=== PATIENT | female | born 1995 | race Caucasian/White ===

== ENCOUNTER 2017-01-24 10:58 | Emergency (ER) | payer OTHER ==
--- NOTE | 2017-01-24 11:37 | EDM.PDOC ---
ED HPI EYE COMPLAINT - General Chief Complaint: Eye Problems Stated Complaint: pink eye Time Seen by Provider: 01/24/17 11:20 Source: Reports: Patient History Limitations: Reports: No limitations - History of Present Illness INITIAL COMMENTS - FREE TEXT/NARRATIVE: HISTORY AND PHYSICAL: History of present illness: [Comes to the emergency room complaining of right eye redness and drainage. Symptoms developed last evening and worsened overnight. Her eye was matted shut this morning with green crust. She's not had any fever or chills, runny nose, earaches, sore throat, or cough. She has been around people with pinkeye both at work and socially. She denies any medication allergies. No blurred vision or double vision. Does not wear contacts or glasses.] Review of systems: As per history of present illness and below otherwise all systems reviewed and negative. Past medical history: As per history of present illness and as reviewed below otherwise noncontributory. Surgical history: As per history of present illness and as reviewed below otherwise noncontributory. Social history: No reported history of drug or alcohol abuse. Family history: As per history of present illness and as reviewed below otherwise noncontributory. Physical exam: HEENT: Atraumatic, normocephalic. TMs are pearly mendez bilaterally no erythema or effusion. Nares are clear. Oral mucous membranes are pink and moist no tonsillar swelling erythema or exudate. Visual acuity 20/20 bilaterally. PERRLA. Right conjunctiva is erythematous and injected. Thick white discharge present to right eye. neck supple, lymphadenopathy. Lungs: Clear to auscultation, breath sounds equal bilaterally, chest nontender. Heart: S1S2, regular, negative for clicks, rubs, or JVD. Genitourinary: Deferred. Rectal: Deferred. Extremities: Atraumatic, ROM x 4. Neurovascular unremarkable. Neuro: Awake, alert, oriented. Motor and sensory unremarkable throughout. Exam nonfocal. Impression: [bacterial conjunctivitis] Plan: [Polymyxin B./trimethoprim 10,000 units per milligram #1 bottle sig: One drop in the affected eye 4 times daily. Discussed ways to decrease transmission to others. All questions are answered and concerns are addressed.] Definitive disposition and diagnosis as appropriate pending reevaluation and review of above. - Related Data Allergies/ADRs: Allergies No Known Allergies Allergy (Verified 01/24/17 11:11) Home Meds: Ambulatory Orders Medication Instructions Recorded Confirmed . 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 Other Musculoskeletal History: back injury Neurological History: Reports: None Psychiatric History: Reports: None Endocrine/Metabolic History: Reports: None Hematologic History: Reports: None Immunologic History: Reports: None Oncologic (Cancer) History: Reports: None Dermatologic History: Reports: None - Infectious Disease History Infectious Disease History: Reports: None - Past Surgical History Head Surgeries/Procedures: Reports: None Musculoskeletal Surgical History: Reports: Other (see below) Other Musculoskeletal Surgeries/Procedures:: spinal fusion Social & Family History - Family History Family Medical History: Noncontributory - Tobacco Use Smoking Status *Q: Never Smoker Second Hand Smoke Exposure: No - Caffeine Use Caffeine Use: Reports: Coffee Caffeine Use Comment: 2-3/day - Recreational Drug Use Recreational Drug Use: No ED ROS GENERAL - Review of Systems Review Of Systems: ROS reveals no pertinent complaints other than HPI. ED EXAM GENERAL W FULL EYE - Physical Exam Exam: See Below Course - Vital Signs Last Recorded V/S: Last Vital Signs Temp 97.7 F 01/24/17 11:45 Pulse 82 01/24/17 11:45 Resp 16 01/24/17 11:45 BP 122/69 01/24/17 11:45 Pulse Ox 99 01/24/17 11:45 Departure - Departure Time of Disposition: 11:35 Disposition: Home, Self-Care 01 Condition: good Clinical Impression: Conjunctivitis Qualifiers: Conjunctivitis type: other mucopurulent Laterality: right Qualified Code(s): H10.021 - Other mucopurulent conjunctivitis, right eye Instructions: Bacterial Conjunctivitis, Tefn-er-Newk Referrals: PCP,None [Primary Care Provider] - Forms: ED Department Discharge Additional Instructions: The following information is given to patients seen in the emergency department who are being discharged to home. This information is to outline your options for follow-up care. We provide all patients seen in our emergency department with a follow-up referral. The need for follow-up, as well as the timing and circumstances, are variable depending upon the specifics of your emergency department visit. If you don't have a primary care physician on staff, we will provide you with a referral. We always advise you to contact your personal physician following an emergency department visit to inform them of the circumstance of the visit and for follow-up with them and/or the need for any referrals to a consulting specialist. The emergency department will also refer you to a specialist when appropriate. This referral assures that you have the opportunity for follow-up care with a specialist. All of these measure are taken in an effort to provide you with optimal care, which includes your follow-up. Under all circumstances we always encourage you to contact your private physician who remains a resource for coordinating your care. When calling for follow-up care, please make the office aware that this follow-up is from your recent emergency room visit. If for any reason you are refused follow-up, please contact the [facility] emergency department at and asked to speak to the emergency department charge nurse. [facility] [address] [place] [id number] Followup with her local primary care provider in 48-72 hours. Use eyedrops as directed. Perform good handwashing to avoid spreading to others. Use separate washcloths for each eye to avoid cross contamination. Return to ER as needed as discussed.
== END 2017-01-24 11:45 | disposition home or self-care (01) ==
LOC: MW.ED 10:58
DX: H10.021 Other mucopurulent conjunctivitis, right eye (principal)
CPT/HCPCS: 99283

== ENCOUNTER 2019-01-06 01:51 | Inpatient (IN) | payer BC ==
[2019-01-06] MEDS ORDERED: Carboprost Tromethamine 250 MCG/1 ML Amp IM PRN (02:01)
[2019-01-06] MEDS ORDERED: Lidocaine 1% 50 ML MDV INJECT PRN (02:01)
[2019-01-06] MEDS ORDERED: Tranexamic Acid 1,000 MG in Sodium Chloride 0.9% 100 ML IV PRN (02:01)
[2019-01-06] MEDS ORDERED: Sodium Chloride 0.9% 2.5 ML Syringe FLUSH PRN (02:01)
[2019-01-06] MEDS ORDERED: Water For Irrigation,Sterile 1,000 ML Container IRR PRN (02:01)
[2019-01-06] MEDS ORDERED: Methylergonovine 0.2 MG/1 ML Amp IM PRN (02:01)
[2019-01-06] MEDS ORDERED: Nalbuphine 10 MG/1 ML Vial IVPUSH PRN ×2 (02:01→22:58)
[2019-01-06] MEDS ORDERED: Butorphanol 1 MG/ML SDV IVPUSH PRN (02:01)
[2019-01-06] MEDS ORDERED: Terbutaline 1 MG/ML SDV SUBCUT PRN (02:01)
[2019-01-06] MEDS ORDERED: Misoprostol 200 MCG Tab PO PRN (02:01)
[2019-01-06] MEDS ORDERED: Sodium Chloride 0.9% 10 ML Syringe FLUSH PRN (02:01)
[2019-01-06] MEDS ORDERED: Oxytocin/0.9 % Sodium Chloride 30 UNIT/500 ML BAG IV SCH ×3 (02:15→22:15)
[2019-01-06] MEDS: Lactated Ringers 1,000 ML IV SCH ×3 (02:25→20:33)
[2019-01-06] MEDS ORDERED: Misoprostol 25 MCG (1/4 of 100 MCG) Tab PO ONE ×2 (03:00→12:46)
[2019-01-06] MEDS ORDERED: Misoprostol 25 MCG (1/4 of 100 MCG) Tab VAG PRN (03:00)
[2019-01-06] MEDS: Misoprostol 25 MCG (1/4 of 100 MCG) Tab VAG PRN ×2 (08:10→12:35)
[2019-01-06] MEDS ORDERED: Lidocaine HCl/EPINEPHrine 5 ML IJ ONE (17:16)
[2019-01-06] MEDS ORDERED: fentaNYL 100 MCG/2 ML SDV ONE ×3 (17:17→23:15)
[2019-01-06] MEDS ORDERED: Ropivacaine 0.2% 2 MG/ML 20 ML SDV ONE (17:52)
--- NOTE | 2019-01-06 18:12 | PCM.PREANE ---
Preanesthetic Assessment - Anesthesia/Transfusion/Family Hx Anesthesia History: Prior Anesthesia Without Reaction Family History of Anesthesia Reaction: No Transfusion History: No Prior Transfusion(s) - Review of Systems General: No Symptoms Pulmonary: No Symptoms Cardiovascular: No Symptoms Gastrointestinal: No Symptoms Neurological: No Symptoms Other: Reports: None (Denies any personal or family hx of bleeding or clotting problems) - Physical Assessment Height: 1.65 m Weight: 79.379 kg ASA Class: 2 Mental Status: Alert & Oriented x3 Dentition: Reports: Normal Dentition - Lab Values: Laboratory Last Values WBC 10.12 K/uL (4.0-11.0) 01/06/19 02:15 RBC 4.31 M/uL (4.30-5.90) 01/06/19 02:15 Hgb 12.6 g/dL (12.0-16.0) 01/06/19 02:15 Hct 37.4 % (36.0-46.0) 01/06/19 02:15 MCV 86.8 fL (80.0-98.0) 01/06/19 02:15 MCH 29.2 pg (27.0-32.0) 01/06/19 02:15 MCHC 33.7 g/dL (31.0-37.0) 01/06/19 02:15 RDW Std Deviation 43.2 fl (28.0-62.0) 01/06/19 02:15 RDW Coeff of Valdo 14 % (11.0-15.0) 01/06/19 02:15 Plt Count 167 K/uL (150-400) 01/06/19 02:15 MPV 10.90 fL (7.40-12.00) 01/06/19 02:15 Nucleated RBC % 0.0 /100WBC 01/06/19 02:15 Nucleated RBCs # 0 K/uL 01/06/19 02:15 Blood Type O POSITIVE 01/06/19 02:15 Antibody Screen NEGATIVE 01/06/19 02:15 - Allergies Allergies/Adverse Reactions: Allergies Allergy/AdvReac Type Severity Reaction Status Date / Time No Known Allergies Allergy Verified 01/06/19 02:00 - Acknowledgements Anesthesia Type Planned: Epidural Pt an Appropriate Candidate for the Planned Anesthesia: Yes Alternatives and Risks of Anesthesia Discussed w Pt/Guardian: Yes Pt/Guardian Understands and Agrees with Anesthesia Plan: Yes Additional Comments: Patient had scoliosis surgery at age 15. Scar visible thoracic level. Patient states that her x-rays were sent over and she "was approved for an epidural" but unsure of who looked at them. She also states that she still has scoliosis on her lower spine also. 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 Musculoskeletal History: back injury Neurological History: Reports: None Psychiatric History: Reports: None Endocrine/Metabolic History: Reports: None Hematologic History: Reports: None Immunologic History: Reports: None Oncologic (Cancer) History: Reports: None Dermatologic History: Reports: None - Infectious Disease History Infectious Disease History: Reports: Chicken Pox - Past Surgical History Head Surgeries/Procedures: Reports: None Neurological Surgical History: Reports: Spinal Fusion Other Neurological Surgeries/Procedures: 2010 Musculoskeletal Surgical History: Reports: Other (See Below) Other Musculoskeletal Surgeries/Procedures:: spinal fusion 2010 - SUBSTANCE USE Smoking Status *Q: Never Smoker Second Hand Smoke Exposure: No - HOME MEDS Home Medications: Home Meds PNV95/Ferrous Fumarate/FA [ Vitamin Tablet] 1 tab PO DAILY 01/06/19 [ History] - CURRENT (IN HOUSE) MEDS Current Meds: Current Medications Butorphanol Tartrate (Stadol) 1 mg IVPUSH Q1H PRN PRN Reason: Pain Carboprost Tromethamine (Hemabate Ds) 250 mcg IM ASDIRECTED PRN PRN Reason: Post Hemorrhage Lactated Ringer's (Ringers, Lactated) 1,000 mls @ 150 mls/hr IV ASDIRECTED JEANNIE Last Admin: 01/06/19 17:09 Dose: 999 mls/hr Oxytocin/Sodium Chloride (Oxytocin 30 Unit/500 Ml-Ns) 30 unit in 500 mls @ 999 mls/hr IV TITRATE JEANNIE Oxytocin/Sodium Chloride (Oxytocin 30 Unit/500 Ml-Ns) 30 unit in 500 mls @ 2 mls/hr IV TITRATE JEANNIE; Protocol Tranexamic Acid 1,000 mg/ (Sodium Chloride) 110 mls @ 660 mls/hr IV ONETIME PRN PRN Reason: Bleeding Lidocaine HCl (Xylocaine 1%) 50 ml INJECT ONETIME PRN PRN Reason: Laceration repair Methylergonovine Maleate (Methergine) 0.2 mg IM ASDIRECTED PRN PRN Reason: Post Hemorrhage Misoprostol (Cytotec) 200 mcg PO ONETIME PRN PRN Reason: Post Hemorrhage Misoprostol (Cytotec) 25 mcg VAG ONETIME PRN PRN Reason: Cervical Ripening Last Admin: 01/06/19 02:52 Dose: 25 mcg Misoprostol (Cytotec) 25 mcg VAG Q4H PRN PRN Reason: Cervical Ripening Last Admin: 01/06/19 12:35 Dose: 25 mcg Nalbuphine HCl (Nubain) 10 mg IVPUSH Q1H PRN PRN Reason: Pain (severe 7-10) Last Admin: 01/06/19 16:58 Dose: 10 mg Sodium Chloride (Saline Flush) 10 ml FLUSH ASDIRECTED PRN PRN Reason: Keep Vein Open Sodium Chloride (Saline Flush) 2.5 ml FLUSH ASDIRECTED PRN PRN Reason: Keep Vein Open Sterile Water (Sterile Water For Irrigation) 1,000 ml IRR ASDIRECTED PRN PRN Reason: delivery Terbutaline Sulfate (Brethine) 0.25 mg SUBCUT ASDIRECTED PRN PRN Reason: Tacysystole Discontinued Medications Fentanyl (Sublimaze) Confirm Administered Dose 100 mcg .ROUTE .STK-MED ONE Stop: 01/06/19 17:18 Fentanyl/Bupivacaine HCl (Gnavilzs-Ymlzt-Pw 2 Mcg/Ml-0.125%) Confirm Administered Dose 100 mls @ as directed .ROUTE .STK-MED ONE Stop: 01/06/19 17:17 Lidocaine/Epinephrine (Lidocaine 1.5%-Epi 1:200,000) Confirm Administered Dose 5 ml IJ .STK-MED ONE Stop: 01/06/19 17:17 Misoprostol (Cytotec) 25 mcg PO ONETIME ONE Stop: 01/06/19 03:01 Last Admin: 01/06/19 02:49 Dose: 25 mcg Misoprostol (Cytotec) 25 mcg PO ONETIME ONE Stop: 01/06/19 12:47 Last Admin: 01/06/19 12:58 Dose: 25 mcg Ropivacaine (Naropin 0.2%) Confirm Administered Dose 20 ml .ROUTE .STK-MED ONE Stop: 01/06/19 17:53
[2019-01-06] MEDS ORDERED: Oxytocin 10 Units/1 ML SDV ONE (21:57)
[2019-01-06] MEDS ORDERED: Morphine PF 10 MG/10 ML SDV ONE (21:58)
[2019-01-06] MEDS ORDERED: Bupivacaine 0.5% 10 ML SDV ONE (22:01)
[2019-01-06] MEDS ORDERED: ceFAZolin 2 GM in Premix Bag 1 BAG IV ONE (22:14)
[2019-01-06] MEDS ORDERED: Citric Acid/Sodium Citrate Solution 30 ML Cup PO ONE (22:14)
[2019-01-06] MEDS ORDERED: Lactated Ringers 1,000 ML IV SCH (22:15)
[2019-01-06] MEDS ORDERED: fentaNYL 100 MCG/2 ML SDV IVPUSH PRN (22:58)
[2019-01-06] MEDS ORDERED: HYDROmorphone 2 MG/ML SDV IVPUSH ONE (22:58)
[2019-01-06] MEDS ORDERED: Midazolam 1 MG/ML 2 ML SDV ONE (23:11)
[2019-01-06] MEDS ORDERED: Ketorolac 30 MG/ML SDV ONE (23:34)
[2019-01-07] MEDS ORDERED: Ondansetron 4 MG/2 ML SDV IVPUSH PRN (00:02)
[2019-01-07] MEDS ORDERED: Acetaminophen/oxyCODONE 325-5 MG Tab PO PRN ×2 (00:02)
[2019-01-07] MEDS ORDERED: Lanolin 100% Cream 7 GM Tube TOP PRN (00:02)
[2019-01-07] MEDS ORDERED: diphenhydrAMINE 50 MG/ML SDV IVPUSH PRN (00:02)
[2019-01-07] MEDS ORDERED: Bisacodyl 10 MG Supp RECTAL PRN (00:02)
--- NOTE | 2019-01-07 00:09 | PCM.OPNOTE ---
- General Post-Op/Procedure Note Date of Surgery/Procedure: 01/07/19 Operative Procedure(s): Primary lower transverse Findings: Live male delivered at 2249 , 9/9 , weight 3470g Pre Op Diagnosis: 23yo @ 40w2d with Cat 2 FHT remote from delivery Post-Op Diagnosis: Same. Thick meconium Anesthesia Technique: Epidural Primary Surgeon: Stacy Zuluaga Anesthesia Provider: Gage Moran Pathology: placenta Fluid Replacement, Intraop: 1,400 Output, Urine Amount: 150 EBL in mLs: 500 Complications: None Condition: Good
[2019-01-07] MEDS ORDERED: Lactated Ringers 1,000 ML IV SCH (00:15)
--- NOTE | 2019-01-07 00:37 | PCM.POSTAN ---
POST ANESTHESIA ASSESSMENT - MENTAL STATUS Mental Status: Alert (Patient states that right hand is feeling normal now), Oriented - RESPIRATORY Respiratory Status: Respiratory Rate WNL, Airway Patent, O2 Saturation Stable - CARDIOVASCULAR CV Status: Pulse Rate WNL, Blood Pressure Stable - GASTROINTESTINAL GI Status: No Symptoms - POST OP HYDRATION Hydration Status: Adequate & Stable
[2019-01-07] MEDS: Ketorolac 30 MG/ML SDV IVPUSH SCH ×4 (07:21→20:47)
--- NOTE | 2019-01-07 09:25 | PCM.PNPP ---
- General Info Date of Service: 01/07/19 Subjective Update: 23 yo P1 s/p primary for cat 2 FHT , Pain control is good , normal U/ o - escobar in place , Minimal lochia Functional Status: Reports: Pain Controlled, Tolerating Diet - Review of Systems General: Reports: No Symptoms HEENT: Reports: No Symptoms Pulmonary: Reports: No Symptoms Cardiovascular: Reports: No Symptoms Gastrointestinal: Reports: No Symptoms Genitourinary: Reports: No Symptoms Musculoskeletal: Reports: No Symptoms Skin: Reports: No Symptoms Neurological: Reports: No Symptoms Psychiatric: Reports: No Symptoms - Patient Data Vital Signs - Most Recent: Last Vital Signs Temp 36.4 C 01/07/19 08:00 Pulse 88 01/07/19 08:00 Resp 18 01/07/19 08:00 BP 106/55 L 01/07/19 08:00 Pulse Ox 96 01/07/19 08:00 Weight - Most Recent: 79.379 kg I&O - Last 24 Hours: Intake & Output 01/06/19 01/07/19 01/07/19 22:59 06:59 14:59 Intake Total 2850 Output Total 1140 Balance 1710 Med Orders - Current: Current Medications Bisacodyl (Dulcolax) 10 mg RECTAL ONETIME PRN PRN Reason: Constipation Butorphanol Tartrate (Stadol) 1 mg IVPUSH Q1H PRN PRN Reason: Pain Carboprost Tromethamine (Hemabate Ds) 250 mcg IM ASDIRECTED PRN PRN Reason: Post Hemorrhage Diphenhydramine HCl (Benadryl) 25 mg IVPUSH Q6H PRN PRN Reason: Itching or Nausea Docusate Sodium (Colace) 100 mg PO BID [facility] Emollient Ointment (Lansinoh Hpa) 0 gm TOP ASDIRECTED PRN PRN Reason: Sore Nipples Fentanyl (Sublimaze) 50 mcg IVPUSH Q5M PRN PRN Reason: Pain (severe 7-10) Stop: 01/07/19 22:58 Lactated Ringer's (Ringers, Lactated) 1,000 mls @ 150 mls/hr IV ASDIRECTED [facility] Last Admin: 01/06/19 20:33 Dose: 150 mls/hr Oxytocin/Sodium Chloride (Oxytocin 30 Unit/500 Ml-Ns) 30 unit in 500 mls @ 999 mls/hr IV TITRATE [facility] Oxytocin/Sodium Chloride (Oxytocin 30 Unit/500 Ml-Ns) 30 unit in 500 mls @ 2 mls/hr IV TITRATE [facility]; Protocol Tranexamic Acid 1,000 mg/ (Sodium Chloride) 110 mls @ 660 mls/hr IV ONETIME PRN PRN Reason: Bleeding Oxytocin/Sodium Chloride (Oxytocin 30 Unit/500 Ml-Ns) 30 unit in 500 mls @ 250 mls/hr IV TITRATE [facility] Lactated Ringer's (Ringers, Lactated) 1,000 mls @ 500 mls/hr IV BOLUS [facility] Last Admin: 01/06/19 22:38 Dose: 999 mls/hr Lactated Ringer's (Ringers, Lactated) 1,000 mls @ 125 mls/hr IV ASDIRECTED [facility] Last Admin: 01/07/19 01:44 Dose: 125 mls/hr Ibuprofen (Motrin) 800 mg PO Q8H PRN PRN Reason: mild pain or fever Ketorolac Tromethamine (Toradol) 30 mg IVPUSH Q6H [facility] Stop: 01/08/19 00:01 Last Admin: 01/07/19 07:21 Dose: 30 mg Lidocaine HCl (Xylocaine 1%) 50 ml INJECT ONETIME PRN PRN Reason: Laceration repair Methylergonovine Maleate (Methergine) 0.2 mg IM ASDIRECTED PRN PRN Reason: Post Hemorrhage Misoprostol (Cytotec) 200 mcg PO ONETIME PRN PRN Reason: Post Hemorrhage Misoprostol (Cytotec) 25 mcg VAG ONETIME PRN PRN Reason: Cervical Ripening Last Admin: 01/06/19 02:52 Dose: 25 mcg Misoprostol (Cytotec) 25 mcg VAG Q4H PRN PRN Reason: Cervical Ripening Last Admin: 01/06/19 12:35 Dose: 25 mcg Ondansetron HCl (Zofran) 4 mg IVPUSH Q4H PRN PRN Reason: Nausea/Vomiting Oxycodone/Acetaminophen (Percocet 325-5 Mg) 1 tab PO Q4H PRN PRN Reason: Pain (moderate 4-6) Oxycodone/Acetaminophen (Percocet 325-5 Mg) 2 tab PO Q4H PRN PRN Reason: Pain (moderate 4-6) Sodium Chloride (Saline Flush) 10 ml FLUSH ASDIRECTED PRN PRN Reason: Keep Vein Open Sodium Chloride (Saline Flush) 2.5 ml FLUSH ASDIRECTED PRN PRN Reason: Keep Vein Open Sterile Water (Sterile Water For Irrigation) 1,000 ml IRR ASDIRECTED PRN PRN Reason: delivery Terbutaline Sulfate (Brethine) 0.25 mg SUBCUT ASDIRECTED PRN PRN Reason: Tacysystole Discontinued Medications Bupivacaine HCl (Sensorcaine-Mpf 0.5%) Confirm Administered Dose 20 ml .ROUTE .STK-MED ONE Stop: 01/06/19 22:02 Citric Acid/Sodium Citrate (Bicitra Solution) 30 ml PO ONETIME ONE Stop: 01/06/19 22:15 Last Admin: 01/06/19 22:28 Dose: 30 ml Fentanyl (Sublimaze) Confirm Administered Dose 100 mcg .ROUTE .STK-MED ONE Stop: 01/06/19 17:18 Fentanyl (Sublimaze) Confirm Administered Dose 100 mcg .ROUTE .STK-MED ONE Stop: 01/06/19 22:53 Fentanyl (Sublimaze) Confirm Administered Dose 100 mcg .ROUTE .STK-MED ONE Stop: 01/06/19 23:16 Hydromorphone HCl (Dilaudid) 2 mg IVPUSH ONETIME ONE Stop: 01/06/19 22:59 Fentanyl/Bupivacaine HCl (Qenpvtgo-Uywhd-Vs 2 Mcg/Ml-0.125%) Confirm Administered Dose 100 mls @ as directed .ROUTE .STK-MED ONE Stop: 01/06/19 17:17 Cefazolin Sodium/Dextrose 2 gm (/ Premix) 50 mls @ 100 mls/hr IV ONETIME ONE Stop: 01/07/19 00:00 Ketorolac Tromethamine (Toradol) Confirm Administered Dose 30 mg .ROUTE .STK- MED ONE Stop: 01/06/19 23:35 Lidocaine/Epinephrine (Lidocaine 1.5%-Epi 1:200,000) Confirm Administered Dose 5 ml IJ .STK-MED ONE Stop: 01/06/19 17:17 Midazolam HCl (Versed 1 Mg/Ml) Confirm Administered Dose 2 mg .ROUTE .STK-MED ONE Stop: 01/06/19 23:12 Misoprostol (Cytotec) 25 mcg PO ONETIME ONE Stop: 01/06/19 03:01 Last Admin: 01/06/19 02:49 Dose: 25 mcg Misoprostol (Cytotec) 25 mcg PO ONETIME ONE Stop: 01/06/19 12:47 Last Admin: 01/06/19 12:58 Dose: 25 mcg Morphine Sulfate (Duramorph Pf) Confirm Administered Dose 10 mg .ROUTE .STK-MED ONE Stop: 01/06/19 21:59 Nalbuphine HCl (Nubain) 10 mg IVPUSH Q1H PRN PRN Reason: Pain (severe 7-10) Last Admin: 01/06/19 16:58 Dose: 10 mg Nalbuphine HCl (Nubain) 2.5 mg IVPUSH Q3H PRN PRN Reason: Pruritis Stop: 01/07/19 22:58 Oxytocin (Pitocin) Confirm Administered Dose 20 unit .ROUTE .STK-MED ONE Stop: 01/06/19 21:58 Ropivacaine (Naropin 0.2%) Confirm Administered Dose 20 ml .ROUTE .STK-MED ONE Stop: 01/06/19 17:53 - Infant Interaction Support Person: Significant Other - Recovery Exam Fundal Tone: Firm Fundal Level: 1 Fingerbreadths Below Umbilicus Fundal Placement: Midline Lochia Amount: Scant Lochia Color: Rubra/Red Perineum Description: Intact, Minimal Bruising/Swelling Episiotomy/Laceration: None Bladder Status: Indwelling Catheter in Place Urinary Elimination: Indwelling Catheter - Exam General: Alert Lungs: Clear to Auscultation Cardiovascular: Regular Rate, Regular Rhythm GI/Abdominal Exam: Normal Bowel Sounds Extremities: Normal Inspection Wound/Incisions: Dressing Dry and Intact Neurological: No New Focal Deficit Psy/Mental Status: Alert - Problem List & Annotations (1) delivery delivered SNOMED Code(s): 629053179 Code(s): O82 - ENCOUNTER FOR DELIVERY WITHOUT INDICATION Status: Acute Current Visit: Yes - Problem List Review Problem List Initiated/Reviewed/Updated: Yes - My Orders Last 24 Hours: My Active Orders 01/06/19 22:14 Patient Status [ADT] Routine Non Stress Test [RC] PER UNIT ROUTINE Up ad Shayy [RC] ASDIRECTED Verify Patient Consent Obtain [RC] ASDIRECTED Schedule Procedure [COMM] Per Unit Routine 01/06/19 22:15 Lactated Ringers [Ringers, Lactated] 1,000 ml IV BOLUS Oxytocin/0.9 % Sodium Chloride [Oxytocin 30 Unit/500 ML-NS] 30 unit in 500 ml IV TITRATE 01/06/19 22:16 Notify Provider Vital Signs [RC] PRN 01/07/19 00:00 Ketorolac [Toradol] 30 mg IVPUSH Q6H 01/07/19 00:02 Notify Provider Intake and Out [RC] ASDIRECTED Notify Provider Vital Signs [RC] ASDIRECTED Acetaminophen/oxyCODONE [Percocet 325-5 MG] 1 tab PO Q4H PRN Acetaminophen/oxyCODONE [Percocet 325-5 MG] 2 tab PO Q4H PRN Bisacodyl [Dulcolax] 10 mg RECTAL ONETIME PRN Lanolin [Lansinoh HPA] See Dose Instructions TOP ASDIRECTED PRN Ondansetron [Zofran] 4 mg IVPUSH Q4H PRN diphenhydrAMINE [Benadryl] 25 mg IVPUSH Q6H PRN Resuscitation Status Routine 01/07/19 00:03 Patient Status [ADT] Routine Ambulate [RC] PER UNIT ROUTINE Communication Order [RC] PER UNIT ROUTINE Communication Order [RC] PER UNIT ROUTINE Communication Order [RC] Per Unit Routine May Shower [RC] ASDIRECTED RT Incentive Spirometry [RC] Q2HWA Assess Lochia [WOMSER] Per Unit Routine Assess Uterine Involution [WOMSER] Per Unit Routine Breast Pump [WOMSER] Per Unit Routine Peripheral IV Discontinue [OM.PC] Routine Sequential Compression Device [OM.PC] Per Unit Routine 01/07/19 00:04 Antiembolic Devices [RC] PER UNIT ROUTINE 01/07/19 00:15 Lactated Ringers [Ringers, Lactated] 1,000 ml IV ASDIRECTED 01/07/19 09:00 Docusate Sodium [Colace] 100 mg PO BID 01/08/19 05:11 HEMOGLOBIN/HEMATOCRIT,HH [HEME] Timed 01/08/19 06:00 Ibuprofen [Motrin] 800 mg PO Q8H PRN - Assessment Assessment:: 23 yo P1 s/p primary for cat 2 FHT , Pain control is good , normal U/ o - escobar in place , Minimal lochia , yet to ambulate - Plan Plan:: Encourage regular diet, ambulation Remove escobar once ambulate Continue pain control Incentive spirometry Routine care
--- NOTE | 2019-01-07 11:34 | PCM48HPAN ---
Post Anesthesia Note - EVALUATION WITHIN 48HRS OF ANESTHETIC Vital Signs in Normal Range: Yes Patient Participated in Evaluation: Yes Respiratory Function Stable: Yes Airway Patent: Yes Cardiovascular Function Stable: Yes Hydration Status Stable: Yes Pain Control Satisfactory: Yes Nausea and Vomiting Control Satisfactory: Yes Mental Status Recovered: Yes Resp Rate: 17 - COMMENTS/OBSERVATIONS Free Text/Narrative:: Denies any complaints and states right hand is completely normal.
[2019-01-07] MEDS: Docusate Sodium 100 MG Cap PO SCH ×2 (12:20→21:45)
[2019-01-08] MEDS: Ketorolac 30 MG/ML SDV IVPUSH SCH (00:20)
--- NOTE | 2019-01-08 01:26 | OR ---
SURGEON: CLAY JAMES DATE OF PROCEDURE:01/06/2019 PREOPERATIVE DIAGNOSIS: A 23-year-old 1, para 0, at 40 weeks 2 days with category 2 heart tracing, remote from delivery. POSTOPERATIVE DIAGNOSIS: A 23-year-old 1, para 0, at 40 weeks 2 days with category 2 heart tracing, remote from delivery. PROCEDURE: Emergency Primary low transverse section. ESTIMATED BLOOD LOSS: 500. IV FLUIDS: 1400. URINE OUTPUT: 150. NOTES AND FINDING: A live male delivered at 2249 hours, scores 9/9, weight is 3470 g boy, also thick meconium noted . BRIEF HISTORY: She is a patient who was admitted for postdates induction of labor. She received about 3 doses of Cytotec. She became 5 cm dilated. She was ruptured. She was noted to have recurrent late deceleration for about 6-7 hours. She was having moderate variability; however, fetus need not respond to resuscitative measures. She was examined at 7:00 p.m., re-examined again at around 10:00 and she was noted to be the same exam . Based on these and the baby's heart tracing, intermittent category 2, the patient was counseled for a primary , she understood. She was explained the risks, benefits, and alternatives. She was given opportunity to ask questions and all questions were answered; however, after epidural was topped off, she was noted to have deceleration . Procedure: The patient was rushed to the operating room .Betadine was poured on maternal abdomen after she was draped. A pfannestiel Incision was made with the scalpel and carried down to the fascia. The fascia was extended upward and extended laterally. The abdomen was entered in bluntly. The Shan retractor was placed and the bladder flap was created. The uterine incision was made. was found to be in cephalic position and with fundal pressure. Fetus was delivered. Baby cried instantly and the meconium was noted to be thick . Cord was clamped and cut . was handed over to the awaiting slate cutter. Then , the placenta was delivered via controlled cord traction. The uterus was then repaired in 2 layers ( 1st with 0 vicryl and 2nd layer with 0 monocryl). The peritoneum around the bladder was noted to be oozing, so a continuous locking stitch was placed on the peritoneum. Hemostasis was noted. Then, the right and left tube and ovary was inspected and appeared normal. The paracolic gutters were cleaned with moist laparotomy sponges. The peritoneum was closed and then the rectus muscle was also closed. The fascia was then closed with 0 Vicryl. Then, the subcutaneous fat was approximated with continuous 0 Vicryl also and the skin was closed with 4-0 Monocryl. All instrument and pads were correct x2. The patient tolerated the procedure well and was taken to the recovery room in stable condition. CHEYENNE SNYDER /[id number] MTDCorey
[2019-01-08] MEDS ORDERED: Ibuprofen 800 MG Tab PO PRN (06:00)
[2019-01-08 07:49] VITALS: BP 114/68
[2019-01-08] MEDS: Docusate Sodium 100 MG Cap PO SCH (08:55)
--- NOTE | 2019-01-08 12:30 | PCM.PNPP ---
- General Info Date of Service: 01/08/19 Subjective Update: 23 yo P1 s/p primary for cat 2 FHT , Pain control is good , normal U/ o - escobar in place , Minimal lochia , POD2 Functional Status: Reports: Pain Controlled, Tolerating Diet, Ambulating, Urinating - Review of Systems General: Reports: No Symptoms HEENT: Reports: No Symptoms Pulmonary: Reports: No Symptoms Cardiovascular: Reports: No Symptoms Gastrointestinal: Reports: No Symptoms Genitourinary: Reports: No Symptoms Musculoskeletal: Reports: No Symptoms Skin: Reports: No Symptoms Neurological: Reports: No Symptoms Psychiatric: Reports: No Symptoms - General Info Date of Service: 01/08/19 - Patient Data Vital Signs - Most Recent: Last Vital Signs Temp 36.9 C 01/08/19 07:15 Pulse 92 01/08/19 07:15 Resp 17 01/08/19 07:15 BP 114/68 01/08/19 07:15 Pulse Ox 96 01/08/19 07:15 Weight - Most Recent: 79.379 kg Lab Results - Last 24 Hours: Laboratory Results - last 24 hr 01/07/19 Range/Units 18:11 Hgb 10.3 L (12.0-16.0) g/dL Hct 30.6 L (36.0-46.0) % Med Orders - Current: Current Medications Bisacodyl (Dulcolax) 10 mg RECTAL ONETIME PRN PRN Reason: Constipation Butorphanol Tartrate (Stadol) 1 mg IVPUSH Q1H PRN PRN Reason: Pain Carboprost Tromethamine (Hemabate Ds) 250 mcg IM ASDIRECTED PRN PRN Reason: Post Hemorrhage Diphenhydramine HCl (Benadryl) 25 mg IVPUSH Q6H PRN PRN Reason: Itching or Nausea Docusate Sodium (Colace) 100 mg PO BID [facility] Last Admin: 01/08/19 08:55 Dose: 100 mg Emollient Ointment (Lansinoh Hpa) 0 gm TOP ASDIRECTED PRN PRN Reason: Sore Nipples Lactated Ringer's (Ringers, Lactated) 1,000 mls @ 150 mls/hr IV ASDIRECTED [facility] Last Admin: 01/06/19 20:33 Dose: 150 mls/hr Oxytocin/Sodium Chloride (Oxytocin 30 Unit/500 Ml-Ns) 30 unit in 500 mls @ 999 mls/hr IV TITRATE [facility] Oxytocin/Sodium Chloride (Oxytocin 30 Unit/500 Ml-Ns) 30 unit in 500 mls @ 2 mls/hr IV TITRATE [facility]; Protocol Tranexamic Acid 1,000 mg/ (Sodium Chloride) 110 mls @ 660 mls/hr IV ONETIME PRN PRN Reason: Bleeding Oxytocin/Sodium Chloride (Oxytocin 30 Unit/500 Ml-Ns) 30 unit in 500 mls @ 250 mls/hr IV TITRATE [facility] Lactated Ringer's (Ringers, Lactated) 1,000 mls @ 500 mls/hr IV BOLUS JEANNIE Last Admin: 01/06/19 22:38 Dose: 999 mls/hr Lactated Ringer's (Ringers, Lactated) 1,000 mls @ 125 mls/hr IV ASDIRECTED JEANNIE Last Admin: 01/07/19 01:44 Dose: 125 mls/hr Ibuprofen (Motrin) 800 mg PO Q8H PRN PRN Reason: mild pain or fever Lidocaine HCl (Xylocaine 1%) 50 ml INJECT ONETIME PRN PRN Reason: Laceration repair Methylergonovine Maleate (Methergine) 0.2 mg IM ASDIRECTED PRN PRN Reason: Post Hemorrhage Misoprostol (Cytotec) 200 mcg PO ONETIME PRN PRN Reason: Post Hemorrhage Misoprostol (Cytotec) 25 mcg VAG ONETIME PRN PRN Reason: Cervical Ripening Last Admin: 01/06/19 02:52 Dose: 25 mcg Misoprostol (Cytotec) 25 mcg VAG Q4H PRN PRN Reason: Cervical Ripening Last Admin: 01/06/19 12:35 Dose: 25 mcg Ondansetron HCl (Zofran) 4 mg IVPUSH Q4H PRN PRN Reason: Nausea/Vomiting Oxycodone/Acetaminophen (Percocet 325-5 Mg) 1 tab PO Q4H PRN PRN Reason: Pain (moderate 4-6) Oxycodone/Acetaminophen (Percocet 325-5 Mg) 2 tab PO Q4H PRN PRN Reason: Pain (moderate 4-6) Sodium Chloride (Saline Flush) 10 ml FLUSH ASDIRECTED PRN PRN Reason: Keep Vein Open Sodium Chloride (Saline Flush) 2.5 ml FLUSH ASDIRECTED PRN PRN Reason: Keep Vein Open Sterile Water (Sterile Water For Irrigation) 1,000 ml IRR ASDIRECTED PRN PRN Reason: delivery Terbutaline Sulfate (Brethine) 0.25 mg SUBCUT ASDIRECTED PRN PRN Reason: Tacysystole Discontinued Medications Bupivacaine HCl (Sensorcaine-Mpf 0.5%) Confirm Administered Dose 20 ml .ROUTE .STK-MED ONE Stop: 01/06/19 22:02 Last Admin: 01/07/19 20:43 Dose: Not Given Citric Acid/Sodium Citrate (Bicitra Solution) 30 ml PO ONETIME ONE Stop: 01/06/19 22:15 Last Admin: 01/06/19 22:28 Dose: 30 ml Fentanyl (Sublimaze) Confirm Administered Dose 100 mcg .ROUTE .STK-MED ONE Stop: 01/06/19 17:18 Last Admin: 01/07/19 20:43 Dose: Not Given Fentanyl (Sublimaze) Confirm Administered Dose 100 mcg .ROUTE .STK-MED ONE Stop: 01/06/19 22:53 Fentanyl (Sublimaze) 50 mcg IVPUSH Q5M PRN PRN Reason: Pain (severe 7-10) Stop: 01/07/19 22:58 Fentanyl (Sublimaze) Confirm Administered Dose 100 mcg .ROUTE .STK-MED ONE Stop: 01/06/19 23:16 Hydromorphone HCl (Dilaudid) 2 mg IVPUSH ONETIME ONE Stop: 01/06/19 22:59 Last Admin: 01/07/19 20:46 Dose: Not Given Fentanyl/Bupivacaine HCl (Nuebumjk-Ounij-Ou 2 Mcg/Ml-0.125%) Confirm Administered Dose 100 mls @ as directed .ROUTE .STK-MED ONE Stop: 01/06/19 17:17 Last Admin: 01/07/19 20:42 Dose: Not Given Cefazolin Sodium/Dextrose 2 gm (/ Premix) 50 mls @ 100 mls/hr IV ONETIME ONE Stop: 01/07/19 00:00 Last Admin: 01/07/19 20:44 Dose: Not Given Ketorolac Tromethamine (Toradol) Confirm Administered Dose 30 mg .ROUTE .STK- MED ONE Stop: 01/06/19 23:35 Ketorolac Tromethamine (Toradol) 30 mg IVPUSH Q6H JEANNIE Stop: 01/08/19 00:01 Last Admin: 01/08/19 00:20 Dose: 30 mg Lidocaine/Epinephrine (Lidocaine 1.5%-Epi 1:200,000) Confirm Administered Dose 5 ml IJ .STK-MED ONE Stop: 01/06/19 17:17 Last Admin: 01/07/19 20:42 Dose: Not Given Midazolam HCl (Versed 1 Mg/Ml) Confirm Administered Dose 2 mg .ROUTE .STK-MED ONE Stop: 01/06/19 23:12 Misoprostol (Cytotec) 25 mcg PO ONETIME ONE Stop: 01/06/19 03:01 Last Admin: 01/06/19 02:49 Dose: 25 mcg Misoprostol (Cytotec) 25 mcg PO ONETIME ONE Stop: 01/06/19 12:47 Last Admin: 01/06/19 12:58 Dose: 25 mcg Morphine Sulfate (Duramorph Pf) Confirm Administered Dose 10 mg .ROUTE .STK-MED ONE Stop: 01/06/19 21:59 Nalbuphine HCl (Nubain) 10 mg IVPUSH Q1H PRN PRN Reason: Pain (severe 7-10) Last Admin: 01/06/19 16:58 Dose: 10 mg Nalbuphine HCl (Nubain) 2.5 mg IVPUSH Q3H PRN PRN Reason: Pruritis Stop: 01/07/19 22:58 Oxytocin (Pitocin) Confirm Administered Dose 20 unit .ROUTE .STK-MED ONE Stop: 01/06/19 21:58 Ropivacaine (Naropin 0.2%) Confirm Administered Dose 20 ml .ROUTE .STK-MED ONE Stop: 01/06/19 17:53 Last Admin: 01/07/19 20:43 Dose: Not Given - Interaction Support Person: Significant Other - Recovery Exam Fundal Tone: Firm Fundal Level: At Umbilicus Fundal Placement: Midline Lochia Amount: Scant Lochia Color: Rubra/Red Perineum Description: Intact, Minimal Bruising/Swelling Episiotomy/Laceration: None Bladder Status: Voiding Urinary Elimination: Voided - Exam General: Alert, Oriented HEENT: Pupils Equal Neck: Supple Lungs: Clear to Auscultation Cardiovascular: Regular Rate, Regular Rhythm GI/Abdominal Exam: Normal Bowel Sounds Extremities: Normal Inspection Skin: Warm Wound/Incisions: Dressing Dry and Intact (pfannestiel skin incision with wound dressing c/d/i) Neurological: No New Focal Deficit Psy/Mental Status: Alert - Problem List & Annotations (1) delivery delivered SNOMED Code(s): 062157417 Code(s): O82 - ENCOUNTER FOR DELIVERY WITHOUT INDICATION Status: Acute Current Visit: Yes - Problem List Review Problem List Initiated/Reviewed/Updated: Yes - My Orders Last 24 Hours: My Active Orders 01/08/19 06:00 Ibuprofen [Motrin] 800 mg PO Q8H PRN - Assessment Assessment:: 23 yo P1 s/p primary for cat 2 FHT , Pain control is good , voided , Minimal lochia ,ambulating POD 2 , stable - Plan Plan:: Discharge home today 2week and 6 weeks appointment
== END 2019-01-08 14:15 | disposition home or self-care (01) | DRG 540 ==
LOC: MW.OBCHECK 01:51 → MW.OB 01:54 → MW.OBCHECK 02:01 → OBSVTOIN 22:14 → MW.OB 01-07 02:56
PROVIDERS: ADMIT Obstetrics & Gynecology; ATTEND Obstetrics & Gynecology
PROC: 10D00Z1 Extraction of Products of Conception, Low, Open Approach (ICD-10-PCS; principal; 2019-01-06)
PROC: 3E0P7VZ Introduction of Hormone into Female Reproductive, Via Natural or Artificial Opening (ICD-10-PCS; principal; 2019-01-06)
PROC: 10907ZC Drainage of Amniotic Fluid, Therapeutic from Products of Conception, Via Natural or Artificial Opening (ICD-10-PCS; principal; 2019-01-06)
PROC: 3E0R3BZ Introduction of Anesthetic Agent into Spinal Canal, Percutaneous Approach (ICD-10-PCS; 2019-01-06)
PROC: 00HU33Z Insertion of Infusion Device into Spinal Canal, Percutaneous Approach (ICD-10-PCS; 2019-01-06)
DX: O48.0 Post-term pregnancy (principal); Z3A.40 40 weeks gestation of pregnancy; O76 Abnormality in fetal heart rate and rhythm complicating labor and delivery; O77.0 Labor and delivery complicated by meconium in amniotic fluid; Z37.0 Single live birth; Z98.1 Arthrodesis status
CPT/HCPCS: 36415; 59025; 85014; 85018; 85027; 86850; 86900; 86901; A9270-GY; J1885; J2250; J2270; J2300; J2590; J2795; J3010; J3490; J7120